=== PATIENT | female | born 1965 | race Two or more races ===

== ENCOUNTER 2020-05-01 07:57 | Day surgery (SDC) | payer OTHER ==
[2020-05-01] MEDS ORDERED: ANALPRAM HC 2.530 GM RECTAL (10:37)
== END 2020-05-01 12:00 | disposition home or self-care (01) ==
LOC: AMB-ENDOS 07:57
PROVIDERS: ATTEND Surgery
DX: D12.0 Benign neoplasm of cecum (principal); D12.2 Benign neoplasm of ascending colon; K62.1 Rectal polyp; K64.5 Perianal venous thrombosis